=== PATIENT | male | born 1975 | race Caucasian/White ===

== ENCOUNTER 2016-05-28 21:55 | Emergency (ER) | payer MEDICAID ==
[2016-05-28 22:54] LABS: BASOPHILS 0.5 % (0.0-2.0); HEMATOCRIT 44.3 % (42.0-54.0); IMMATURE GRANULOCYTES 0.3 % (0-5); LYMPHOCYTES 37.4 % (15-50); MCH 32.1 pg (26.0-34.0); MCHC 33.9 g/dL (31.0-37.0); MCV 94.7 fL (80.0-100.0); MEAN PLATELET VOLUME 9.6 fL (7.4-10.4); MONOCYTES 10.7 % (2-11); NEUTROPHILS 48.1 % (40-80); PLATELET COUNT 174 10x3/uL (130-400); RBC 4.68 10x6/uL (4.20-6.10); RDW 12.8 % (11.5-14.5); WBC 6.4 10x3/uL (4.8-10.8)
== END 2016-05-29 00:20 | disposition home or self-care (01) ==
LOC: D.ER 21:55
PROVIDERS: Emergency Medicine
DX: S16.1XXA Strain of muscle, fascia and tendon at neck level, initial encounter (principal); V43.52XA Car driver injured in collision with other type car in traffic accident, initial encounter; Y93.89 Activity, other specified; Y92.410 Unspecified street and highway as the place of occurrence of the external cause; S39.012A Strain of muscle, fascia and tendon of lower back, initial encounter; S46.912A Strain of unspecified muscle, fascia and tendon at shoulder and upper arm level, left arm, initial encounter; S46.911A Strain of unspecified muscle, fascia and tendon at shoulder and upper arm level, right arm, initial encounter; F12.90 Cannabis use, unspecified, uncomplicated; F17.200 Nicotine dependence, unspecified, uncomplicated; I10 Essential (primary) hypertension; F41.9 Anxiety disorder, unspecified; F43.10 Post-traumatic stress disorder, unspecified; G47.00 Insomnia, unspecified; F42.9 Obsessive-compulsive disorder, unspecified; F98.8 Other specified behavioral and emotional disorders with onset usually occurring in childhood and adolescence; F32.9 Major depressive disorder, single episode, unspecified

== ENCOUNTER 2017-08-29 16:06 | Emergency (ER) | payer MEDICARE ==
[~2017-08-29] VITALS: Ht 167.6 cm; Wt 86.4 kg
[2017-08-29 16:15] VITALS: Ht 167.6 cm; Wt 86.4 kg
[2017-08-29] MEDS ORDERED: VISTARIL50 MG PO (16:18)
[2017-08-29] MEDS ORDERED: NORCO 7.5/325 T1 TA1 PO (16:18)
[2017-08-29] MEDS ORDERED: NEURONTIN600 MG PO (16:19)
[2017-08-29] MEDS ORDERED: PROTONIX40 MG PO (16:19)
[2017-08-29] MEDS ORDERED: BLOOD PRESSURE MED (16:20)
[2017-08-29 17:05] LABS: BASOPHILS 0.3 % (0-2); EOSINOPHILS 0.8 % (0-7); HEMATOCRIT 43.6 % (42.0-54.0); HEMOGLOBIN 14.9 g/dL (13.5-17.5); IMMATURE GRANULOCYTES 0.4 % (0-5); MCH 31.6 pg (26.0-34.0); MCHC 34.2 g/dL (31.0-37.0); MCV 92.4 fL (80.0-100.0); MEAN PLATELET VOLUME 9.1 fL (7.4-10.4); NEUTROPHILS 60.5 % (40-80); PLATELET COUNT 179 10x3/uL (130-400); RBC 4.72 10x6/uL (4.20-6.10); RDW 12.9 % (11.5-14.5); WBC 7.8 10x3/uL (4.8-10.8)
[2017-08-29 17:15] LABS: APTT 25.2 SECONDS (22.8-39.4); INR 0.96 (0.85-1.17); PROTIME 12.4 SECONDS (11.6-15.0)
[2017-08-29 17:17] LABS: D-DIMER-QUANTITATIVE 0.63 ug/mLFEU (0.20-0.54)
[2017-08-29 17:24] LABS: ALBUMIN 3.7 g/dL (3.4-5.0); ALKALINE PHOSPHATASE 49 U/L (46-116); ALT (SGPT) 33 U/L (10-68); CALC OSMOLALITY 269 mosm/kg (275-300); CALCIUM 8.7 mg/dL (8.5-10.1); CARBON DIOXIDE 26.6 mmol/L (21.0-32.0); CHLORIDE - SERUM 101 mmol/L (98-107); CREATININE - SERUM 1.1 mg/dL (0.6-1.3); GLUCOSE 101 mg/dL (74-106); POTASSIUM - SERUM 4.1 mmol/L (3.5-5.1); PROTEIN - SERUM 7.6 g/dL (6.4-8.2); SODIUM 134 mmol/L (136-145); UREA NITROGEN 18 mg/dL (7-18); eGFR NON AFRICAN AMERICAN 78 mL/min (90-120)
[2017-08-29 17:32] LABS: CKMB 0.5 U/L (0.0-3.6); CREATINE KINASE 91 UL (21-232)
[2017-08-29 17:50] LABS: TROPONIN-I < 0.017 ng/mL (0.000-0.060)
[2017-08-29] MEDS ORDERED: ELIQUIS5 MG PO (19:33)
[2017-08-29 20:21] VITALS: BP 145/66
== END 2017-08-29 20:22 | disposition home or self-care (01) ==
LOC: D.ER 16:06
PROVIDERS: Family Medicine
DX: I82.432 Acute embolism and thrombosis of left popliteal vein (principal); M06.9 Rheumatoid arthritis, unspecified; I10 Essential (primary) hypertension

== ENCOUNTER 2017-10-18 13:47 | Inpatient (IN) | payer MEDICARE ==
[2017-10-18] VITALS (8 sets, daily range): BP systolic 89–117; BP diastolic 36–62
[~2017-10-18] VITALS: Ht 167.6 cm; Wt 86.4 kg
[~2017-10-18 13:47] MED LIST: BLOOD PRESSURE MED; ELIQUIS5 MG PO; NEURONTIN600 MG PO; NORCO 7.5/325 T1 TA1 PO; PROTONIX40 MG PO; VISTARIL50 MG PO
[2017-10-18] MEDS ORDERED: PRADAXA75 MG PO (14:07)
[2017-10-18] MEDS ORDERED: HYDRALAZINE HCL25 MG PO (14:08)
[2017-10-18 14:41] LABS: BASOPHILS 0.3 % (0-2); EOSINOPHILS 0.8 % (0-7); HEMATOCRIT 45.1 % (42.0-54.0); HEMOGLOBIN 15.6 g/dL (13.5-17.5); IMMATURE GRANULOCYTES 0.3 % (0-5); LYMPHOCYTES 24.8 % (15-50); MCH 32.2 pg (26.0-34.0); MCHC 34.6 g/dL (31.0-37.0); MEAN PLATELET VOLUME 9.5 fL (7.4-10.4); MONOCYTES 12.4 % (2-11); NEUTROPHILS 61.4 % (40-80); RBC 4.85 10x6/uL (4.20-6.10); RDW 12.5 % (11.5-14.5); WBC 7.7 10x3/uL (4.8-10.8)
[2017-10-18 14:54] LABS: PLATELET COUNT 239 10x3/uL (130-400)
[2017-10-18 15:07] LABS: ALBUMIN 4.3 g/dL (3.4-5.0); ALKALINE PHOSPHATASE 62 U/L (46-116); ALT (SGPT) 31 U/L (10-68); BILIRUBIN - TOTAL 0.48 mg/dL (0.2-1.3); CALC OSMOLALITY 283 mosm/kg (275-300); CALCIUM 8.7 mg/dL (8.5-10.1); CARBON DIOXIDE 22.8 mmol/L (21.0-32.0); CHLORIDE - SERUM 100 mmol/L (98-107); CREATININE - SERUM 7.6 mg/dL (0.6-1.3); GLUCOSE 109 mg/dL (74-106); POTASSIUM - SERUM 3.9 mmol/L (3.5-5.1); SODIUM 137 mmol/L (136-145); UREA NITROGEN 38 mg/dL (7-18); eGFR NON AFRICAN AMERICAN 8 mL/min (90-120)
[2017-10-18 15:08] LABS: TROPONIN-I < 0.017 ng/mL (0.000-0.060)
[2017-10-18 18:44] LABS: APPEARANCE CLEAR (CLEAR); BILIRUBIN NEGATIVE (NEGATIVE); COLOR YELLOW (YELLOW); GLUCOSE 100 mg/dL (NEGATIVE); KETONE NEGATIVE (NEGATIVE); NITRITE NEGATIVE (NEGATIVE); PROTEIN 1+ mg/dL (NEGATIVE); UROBILINOGEN NORMAL (NORMAL)
[2017-10-18 18:46] LABS: WHITE CELLS - URINE 0-5 /hpf (0-5)
[2017-10-18 18:47] LABS: BACTERIA MODERATE /hpf (NONE SEEN); EPITHELIAL CELLS 0-5 /hpf (0-5); HYALINE CAST 0-5 /lpf (NONE SEEN)
[2017-10-19] MEDS ORDERED: CYCLOBENZAPRINE10 MG PO (00:12)
[2017-10-19] MEDS ORDERED: TRAZODONE HCL150 MG PO (00:13)
[2017-10-19 01:46] VITALS: BP 117/62; BMI 30.7
[2017-10-19 04:39] LABS: BASOPHILS 0.5 % (0-2); EOSINOPHILS 1.6 % (0-7); HEMOGLOBIN 12.5 g/dL (13.5-17.5); IMMATURE GRANULOCYTES 0.2 % (0-5); LYMPHOCYTES 36.6 % (15-50); MCH 31.1 pg (26.0-34.0); MCHC 32.9 g/dL (31.0-37.0); MCV 94.5 fL (80.0-100.0); MEAN PLATELET VOLUME 9.7 fL (7.4-10.4); MONOCYTES 12.3 % (2-11); NEUTROPHILS 48.8 % (40-80); PLATELET COUNT 204 10x3/uL (130-400); RBC 4.02 10x6/uL (4.20-6.10); RDW 12.5 % (11.5-14.5)
[2017-10-19 04:44] LABS: WBC 5.5 10x3/uL (4.8-10.8)
[2017-10-19 04:52] VITALS: BP 100/64
[2017-10-19 04:57] LABS: ANION GAP 10.8 mmol/L (8-16); BILIRUBIN - TOTAL 0.4 mg/dL (0.2-1.3); CALCIUM 7.8 mg/dL (8.5-10.1); CARBON DIOXIDE 23.5 mmol/L (21.0-32.0); POTASSIUM - SERUM 4.3 mmol/L (3.5-5.1); PROTEIN - SERUM 6.2 g/dL (6.4-8.2)
[2017-10-19 04:58] LABS: ALBUMIN 3.1 g/dL (3.4-5.0)
[2017-10-19 08:21] VITALS: BP 87/53
[2017-10-19 12:11] VITALS: Ht 167.6 cm; Wt 86.4 kg
[2017-10-19 12:53] VITALS: BP 129/72
[2017-10-19 16:23] VITALS: BP 113/69
[2017-10-19 20:16] VITALS: BP 120/66
[2017-10-20 01:25] VITALS: BP 130/76
[2017-10-20 04:34] LABS: BASOPHILS 0.2 % (0-2); EOSINOPHILS 1.9 % (0-7); HEMATOCRIT 36.2 % (42.0-54.0); HEMOGLOBIN 12.1 g/dL (13.5-17.5); IMMATURE GRANULOCYTES 0.2 % (0-5); LYMPHOCYTES 44.7 % (15-50); MCH 31.5 pg (26.0-34.0); MCHC 33.4 g/dL (31.0-37.0); MCV 94.3 fL (80.0-100.0); MEAN PLATELET VOLUME 9.3 fL (7.4-10.4); MONOCYTES 9.3 % (2-11); NEUTROPHILS 43.7 % (40-80); PLATELET COUNT 165 10x3/uL (130-400); RBC 3.84 10x6/uL (4.20-6.10); RDW 12.3 % (11.5-14.5); WBC 4.6 10x3/uL (4.8-10.8)
[2017-10-20 04:44] LABS: ANION GAP 9.6 mmol/L (8-16); CALCIUM 7.6 mg/dL (8.5-10.1); CARBON DIOXIDE 24.7 mmol/L (21.0-32.0); POTASSIUM - SERUM 4.3 mmol/L (3.5-5.1)
[2017-10-20 04:46] LABS: CREATININE - SERUM 1.6 mg/dL (0.6-1.3)
[2017-10-20 05:03] VITALS: BP 112/63
[2017-10-20 08:41] VITALS: BP 131/70
[2017-10-20] MEDS ORDERED: NICODERM C1 PATCH .1 TRANSDERM (09:03)
== END 2017-10-20 14:14 | disposition home or self-care (01) | DRG 683 ==
LOC: D.ER 13:47 → D.M2 19:53 → D.EDHOLD 19:53 → D.M2 20:05
PROVIDERS: Family Medicine; Internal Medicine Nephrology
DX: N17.9 Acute kidney failure, unspecified (principal); F17.213 Nicotine dependence, cigarettes, with withdrawal; I10 Essential (primary) hypertension; E86.9 Volume depletion, unspecified; I95.9 Hypotension, unspecified; E78.5 Hyperlipidemia, unspecified; K21.9 Gastro-esophageal reflux disease without esophagitis; F32.9 Major depressive disorder, single episode, unspecified; F41.9 Anxiety disorder, unspecified; Z79.01 Long term (current) use of anticoagulants; Z86.718 Personal history of other venous thrombosis and embolism

== ENCOUNTER 2019-04-28 22:26 | Observation (INO) | payer MEDICARE ==
[~2019-04-28] VITALS: Ht 167.6 cm; Wt 97.7 kg
[~2019-04-28 22:26] MED LIST changes: +CYCLOBENZAPRINE10 MG PO; +HYDRALAZINE HCL25 MG PO; +NICODERM C1 PATCH .1 TRANSDERM; +PRADAXA75 MG PO; +TRAZODONE HCL150 MG PO
[2019-04-28] MEDS ORDERED: LISINOPRIL10 MG PO (23:01)
[2019-04-28] MEDS ORDERED: ZANAFLEX4 MG PO (23:02)
[2019-04-28] MEDS ORDERED: HYDROCODON-ACE1 EA10 PO (23:02)
[2019-04-28] MEDS ORDERED: [UNRECOGNIZED DRUG - REMARK] (23:03)
--- NOTE | 2019-04-28 23:20 | NUR ---
ORDER FOR SL NITRO VERIFIED WITH EDP DOWNEN. EDP DOWNEN STATED TO WITH HOLD NITRO AT THIS TIME. NO FURTHER ORDERS GIVEN.
[2019-04-28 23:29] VITALS: BP 152/96
[2019-04-28 23:42] LABS: HEMOGLOBIN 16.6 g/dL (13.5-17.5); LYMPHOCYTES 22.1 % (15-50); MCH 29.3 pg (26.0-34.0); MCHC 33.2 g/dL (31.0-37.0); MCV 88.3 fL (80.0-100.0); MEAN PLATELET VOLUME 9.1 fL (7.4-10.4); NEUTROPHILS 70.8 % (40-80); PLATELET COUNT 339 10x3/uL (130-400); RBC 5.66 10x6/uL (4.20-6.10); RDW 12.4 % (11.5-14.5)
[2019-04-28 23:44] LABS: CALC OSMOLALITY 277 mosm/kg (275-300); CALCIUM 9.4 mg/dL (8.5-10.1); CARBON DIOXIDE 28.3 mmol/L (21.0-32.0); CHLORIDE - SERUM 100 mmol/L (98-107); CREATININE - SERUM 1.3 mg/dL (0.6-1.3); GLUCOSE 114 mg/dL (74-106); POTASSIUM - SERUM 4.3 mmol/L (3.5-5.1); SODIUM 136 mmol/L (136-145); UREA NITROGEN 26 mg/dL (7-18); eGFR NON AFRICAN AMERICAN 64 mL/min (90-120)
[2019-04-28 23:47] LABS: APTT 30.7 SECONDS (22.8-39.4); INR 1.05 (0.85-1.17); PROTIME 13.6 SECONDS (11.6-15.0)
[2019-04-28 23:48] LABS: D-DIMER-QUANTITATIVE 0.52 ug/mLFEU (0.20-0.54)
[2019-04-29 00:01] LABS: ALBUMIN 4.6 g/dL (3.4-5.0); ALKALINE PHOSPHATASE 62 U/L (30-120); ALT (SGPT) 45 U/L (10-68); AMYLASE - SERUM 1 U/L (25-115); BILIRUBIN - TOTAL 0.58 mg/dL (0.2-1.3); CKMB 1.5 U/L (0.0-3.6); CREATINE KINASE 454 UL (21-232); LIPASE 392 U/L (73-393); PROTEIN - SERUM 8.7 g/dL (6.4-8.2); TROPONIN-I 0.041 ng/mL (0.000-0.060)
[2019-04-29 00:08] LABS: MAGNESIUM - SERUM 2.3 mg/dL (1.8-2.4)
--- NOTE | 2019-04-29 02:01 | NUR ---
PT LYING ON RIGHT LATERAL SIDE, RESTING, BREATHS EVEN, NO ACUTE DISTRESS NOTED, BED IN LOWEST POSITION, CALL LIGHT WITHIN REACH, WILL CONTINUE TO MONITOR.
[2019-04-29] MEDS ORDERED: OMEPRAZOLE20 M1 PO (03:24)
[2019-04-29 03:42] VITALS: BMI 34.7
[2019-04-29 03:53] VITALS: BP 114/70
[2019-04-29 06:36] LABS: BASOPHILS 0.2 % (0-2); EOSINOPHILS 0.8 % (0-7); HEMATOCRIT 46.4 % (42.0-54.0); HEMOGLOBIN 15.8 g/dL (13.5-17.5); IMMATURE GRANULOCYTES 0.4 % (0-5); LYMPHOCYTES 24.5 % (15-50); MCH 30.2 pg (26.0-34.0); MCHC 34.1 g/dL (31.0-37.0); MCV 88.7 fL (80.0-100.0); MEAN PLATELET VOLUME 9.4 fL (7.4-10.4); MONOCYTES 12.2 % (2-11); NEUTROPHILS 61.9 % (40-80); PLATELET COUNT 326 10x3/uL (130-400); RBC 5.23 10x6/uL (4.20-6.10); RDW 13.1 % (11.5-14.5)
--- NOTE | 2019-04-29 07:20 | NUR ---
RECIEVE REPORT. RESTING IN BED WITH EYES CLOSED. NO SIGNS OF DISTRESS. CONTINUE PLAN OF CARE AND SAFETY PRECAUTIONS.
[2019-04-29 07:29] LABS: ALBUMIN 4.3 g/dL (3.4-5.0); ALKALINE PHOSPHATASE 61 U/L (30-120); ALT (SGPT) 46 U/L (10-68); BILIRUBIN - TOTAL 0.55 mg/dL (0.2-1.3); CALC OSMOLALITY 277 mosm/kg (275-300); CALCIUM 8.9 mg/dL (8.5-10.1); CARBON DIOXIDE 25.3 mmol/L (21.0-32.0); CHLORIDE - SERUM 99 mmol/L (98-107); CKMB 1.3 U/L (0.0-3.6); CREATINE KINASE 516 UL (21-232); CREATININE - SERUM 1.1 mg/dL (0.6-1.3); GLUCOSE 112 mg/dL (74-106); POTASSIUM - SERUM 4.3 mmol/L (3.5-5.1); PROTEIN - SERUM 7.8 g/dL (6.4-8.2); SODIUM 136 mmol/L (136-145); TROPONIN-I < 0.017 ng/mL (0.000-0.060); UREA NITROGEN 27 mg/dL (7-18); eGFR NON AFRICAN AMERICAN 78 mL/min (90-120)
[2019-04-29 11:02] VITALS: BP 149/78
[2019-04-29 12:00] VITALS: BP 119/55
[2019-04-29 13:23] VITALS: Ht 167.6 cm; Wt 97.7 kg
[2019-04-29 15:23] LABS: UDS - AMPHET NEGATIVE QUAL (NEGATIVE); UDS - BARB NEGATIVE QUAL (NEGATIVE); UDS - BENZO POSITIVE QUAL (NEGATIVE); UDS - COCAINE NEGATIVE QUAL (NEGATIVE); UDS - OPIATE NEGATIVE QUAL (NEGATIVE); UDS - PCP NEGATIVE QUAL (NEGATIVE); UDS - THC NEGATIVE QUAL (NEGATIVE)
[2019-04-29 15:49] LABS: BILIRUBIN NEGATIVE (NEGATIVE); GLUCOSE NEGATIVE (NEGATIVE); KETONE NEGATIVE (NEGATIVE); NITRITE NEGATIVE (NEGATIVE); UROBILINOGEN NORMAL (NORMAL)
[2019-04-29 17:42] VITALS: BP 123/75
[2019-04-29 22:02] VITALS: BP 139/93
[2019-04-30 00:37] VITALS: BP 122/83
[2019-04-30 06:01] VITALS: BP 108/47
[2019-04-30 06:04] LABS: BASOPHILS 0.1 % (0-2); EOSINOPHILS 0.4 % (0-7); HEMATOCRIT 41.8 % (42.0-54.0); HEMOGLOBIN 13.8 g/dL (13.5-17.5); IMMATURE GRANULOCYTES 0.3 % (0-5); MCH 29.9 pg (26.0-34.0); MCV 90.5 fL (80.0-100.0); MEAN PLATELET VOLUME 9.1 fL (7.4-10.4); MONOCYTES 10.5 % (2-11); NEUTROPHILS 62.7 % (40-80); RBC 4.62 10x6/uL (4.20-6.10); RDW 13.1 % (11.5-14.5); WBC 10.2 10x3/uL (4.8-10.8)
[2019-04-30 06:05] LABS: PLATELET COUNT 253 10x3/uL (130-400)
[2019-04-30 06:27] LABS: CALC OSMOLALITY 277 mosm/kg (275-300); CALCIUM 8.3 mg/dL (8.5-10.1); CARBON DIOXIDE 26.9 mmol/L (21.0-32.0); CHLORIDE - SERUM 106 mmol/L (98-107); GLUCOSE 103 mg/dL (74-106); POTASSIUM - SERUM 4.1 mmol/L (3.5-5.1); SODIUM 138 mmol/L (136-145); eGFR NON AFRICAN AMERICAN 87 mL/min (90-120)
[2019-04-30 06:34] LABS: UREA NITROGEN 18 mg/dL (7-18)
--- NOTE | 2019-04-30 07:10 | NUR ---
REPORT RECEIVED FROM PHYSICIAN PRACTICE MARKET MANAGER AND PATIENT CARE ASSUMED. PATIENT LAYING IN BED ON BACK WITH EYES CLOSED AND BREATHING EVENLY. WILL CONTINUE WITH PLAN OF CARE. SR UPX 2 BED IN LOW POSITION AND CALL LIGHT IN REACH.
--- NOTE | 2019-04-30 11:41 | EC ---
PATIENT:KERRI CORTÉS DATE OF SERVICE: 04/29/19 SEX: M MEDICAL RECORD: [id number] DATE OF : [birth year] LOCATION:D.M2 D.212 AGE OF PATIENT: 44 ADMISSION DATE: 04/29/19 REFERRING PHYSICIAN: INTERPRETING PHYSICIAN: YADI DIMAS MD ECHOCARDIOGRAM REPORT ECHO CHARGES 4 ECHO COMPLETE Date: 04/29/19 CLINICAL DIAGNOSIS: SOB ECHOCARDIOGRAPHIC MEASUREMENTS (adult normal given) AC root (d.<3.7cm) 2.8 cm LV Septum d (<1.2 cm> 0.9 cm Valve Excursion 1.6 cm LV Septum (systole) 1.4 cm Left Atria (s.<4.0cm> 2.5 cm LVPW d(<1.2cm) 1.0 cm RV (d.<2.3cm) 2.7 cm LVPW (sytole) 1.1 cm LV diastole(<5.6CM) 4.6 cm MV E-F(>70mm/sec) cm LV systole 3.8 cm LVOT Diameter 1.5 cm MV exc.(>10mm) cm Est.ejection fraction (50-75%) % DOPPLER: LVIT cm/sec A 57 cm/sec E 58 cm/sec LA cm/sec RVSP 25.5 mmHg LVOT 89 cm/sec AOP1/2T m/s Asc. Ao 118 cm/sec RVOT 70 cm/sec RA cm/sec PA 100 cm/sec AV Gradient Peak 5.6 mmHg AV Mean 2.6 mmHg AV Area 1.5 cm MV Gradient Peak 3.1 mmHg MV Mean 1.2 mmHg MV Area cm COMMENTS: Thermostat Mechanic: [facility] Field Service Technician Poultry: 3 Dr. Santos TAPE# PACS Pericardial Effusion N DATE OF SERVICE: Adequate 2D, color flow imaging, spectral Doppler, and M-Mode No LVH. LV internal dimension is normal. Wall motion is normal. EF is greater than or equal to 55%. Aortic valve is tricuspid. No evidence of stenosis by Doppler interrogation. Left atrium is normal at 3.5 cm. Mitral valve shows no prolapse. Trace MR. Right-sided chambers are grossly normal. Trace TR. TRANSINT:[id number] Voice Confirmation ID: [id number] DOCUMENT ID: [id number] ECHOCARDIOGRAM REPORT [id number] KERRI CORTÉS YADI DIMAS MD at 1141 CC: [id number] DICTATION DATE: 04/29/19 1355 RN PHYSICIAN OFFICE: 04/29/19 1430 ADM IN [place] [id number] [place] [id number]
[2019-04-30 12:01] VITALS: BP 116/59
[2019-04-30] MEDS ORDERED: ELIQUIS5 MG PO (12:29)
--- NOTE | 2019-04-30 14:35 | NUR ---
PATIENT IS STABLE AND VSS. PATIENT DENIES ANY NEEDS OR PAIN. ORDERS RECEIVED DC. WRITTEN AND VERBAL INSRUCTIONS GIVEN TO PATIENT. PATIENT VERBALIZED UNDERSTANDING AND SIGNED PAPERWORK. IV DCD WITHOUT DIFFICULTY WITH ENTIRE CATHETER INTACT. PRESSURE DRSG APPLIED. PATIENT TO FRONT DOOR VIA WC ACCOMPANIED BY HOSPTIAL STAFF TO PRIVATE VEHICLE DRIVEN BY FRIEND.
--- NOTE | 2019-05-01 07:53 | MORECARE ---
CASE MANAGEMENT DISCHARGE SUMMARY PATIENT: KERRI CORTÉS UNIT: [id number] ADM DATE: 04/29/19 AGE: 44 : [birth year] SEX: M ROOM/BED: D.2121 AUTHOR: YANET OLSON PHYSICIAN: REFERRING PHYSICIAN: FELICIA ROA MD DATE OF SERVICE: 05/01/19 Discharge Plan Patient Name: KERRI CORTÉS [facility] [facility] 1975 Planned Disposition: Home Anticipated Discharge Date: 04/30/19 Discharge Date: 04/30/2019 Expected LOS: 1 Initial Reviewer: [email or web address] Initial Review Date: 05/01/2019 Generated: 05/01/19 8:52 am DCP- Discharge Planning Updated by [email or web address]: Krista Oliver on 04/29/19 3:[address] BEAR SERVED, EXPLAINED, AND SIGNED BY PATIENT. THE ORIGINAL WAS PROVIDED TO THE PATIENT AND COPY PLACED ON CHART. Coverage Notice Reviewer: [email or web address] - Krista Oliver Notice Issued Date-Time: 04/29/2019 13:00 Notice Type: Medicare Outpatient Observation Notice Notice Delivered To: Patient Relationship to Patient: Shipfitter Apprentice Name: Delivery Method: HAND - Hand Delivered Stacie Days: Prior Verbal Notification: Recipient Understood Notice: Yes Recipient Signature: Yes Med Rec Note Co-signed by Attending: Coverage Notice Comment: BEAR SERVED, EXPLAINED, AND SIGNED BY PATIENT. THE ORIGINAL WAS PROVIDED TO THE PATIENT AND COPY PLACED ON CHART. Patient Name: KERRI CORTÉS Page [id number] at 0753 All edits/amendments must be made on the electronic document DICTATION DATE: 05/01/19 075 LUBRICATOR GRANULATOR: REMA 05/01/19 0752 RPT#: [id number] DC DATE:04/30/19 STATUS: DIS IN [facility] [address] [place] [address] END OF REPORT
== END 2019-04-30 14:35 | disposition home or self-care (01) ==
LOC: D.ER 22:26 → D.M2 04-29 01:45 → OBSVTIME 04-29 01:45 → D.M2 04-29 01:45 → D.SDCHOLD 04-29 11:40 → D.M2 04-29 14:54 → D.SDCHOLD 04-29 14:54 → D.M2 04-30 14:35
PROVIDERS: Family Medicine; ADMIT Internal Medicine Nephrology; ATTEND Internal Medicine Nephrology
DX: I20.9 Angina pectoris, unspecified (principal); N17.9 Acute kidney failure, unspecified; I10 Essential (primary) hypertension; F41.8 Other specified anxiety disorders; F17.203 Nicotine dependence unspecified, with withdrawal; G89.29 Other chronic pain; I82.509 Chronic embolism and thrombosis of unspecified deep veins of unspecified lower extremity; Z79.01 Long term (current) use of anticoagulants

== ENCOUNTER → 2019-05-06 17:04 | Outpatient (CLI) | payer MEDICARE ==
[2019-04-29 13:23] VITALS: BMI 34.7
[~2019-05-06 17:04] MED LIST changes: +HYDROCODON-ACE1 EA10 PO; +LISINOPRIL10 MG PO; +OMEPRAZOLE20 M1 PO; +ZANAFLEX4 MG PO; +[UNRECOGNIZED DRUG - REMARK]
[2019-05-06 17:49] LABS: BASOPHILS 0.1 % (0-2); EOSINOPHILS 0.6 % (0-7); HEMATOCRIT 44.2 % (42.0-54.0); HEMOGLOBIN 14.5 g/dL (13.5-17.5); IMMATURE GRANULOCYTES 0.3 % (0-5); LYMPHOCYTES 20.1 % (15-50); MCH 30.2 pg (26.0-34.0); MCHC 32.8 g/dL (31.0-37.0); MCV 92.1 fL (80.0-100.0); MEAN PLATELET VOLUME 9.1 fL (7.4-10.4); MONOCYTES 10.4 % (2-11); NEUTROPHILS 68.5 % (40-80); PLATELET COUNT 271 10x3/uL (130-400); RDW 12.7 % (11.5-14.5); WBC 10.8 10x3/uL (4.8-10.8)
[2019-05-06 17:55] LABS: ALBUMIN 3.7 g/dL (3.4-5.0); ANION GAP 9.5 mmol/L (8-16); BILIRUBIN - TOTAL 0.29 mg/dL (0.2-1.3); CALCIUM 8.6 mg/dL (8.5-10.1); CARBON DIOXIDE 28.7 mmol/L (21.0-32.0); CREATININE - SERUM 1.5 mg/dL (0.6-1.3); POTASSIUM - SERUM 4.2 mmol/L (3.5-5.1); PROTEIN - SERUM 7.4 g/dL (6.4-8.2)
== END | disposition home or self-care (01) ==
LOC: D.RAD 17:04
PROVIDERS: ATTEND Nurse Practitioner
DX: R10.9 Unspecified abdominal pain (principal)

== ENCOUNTER → 2019-10-07 16:45 | Outpatient (CLI) | payer MEDICARE ==
[2019-04-29 13:23] VITALS: BMI 34.7
== END | disposition home or self-care (01) ==
LOC: D.US 16:45
PROVIDERS: ATTEND Nurse Practitioner
DX: M79.605 Pain in left leg (principal)

== ENCOUNTER → 2019-11-17 10:49 | Outpatient (CLI) | payer MEDICARE ==
[2019-04-29 13:23] VITALS: BMI 34.7
== END | disposition home or self-care (01) ==
LOC: D.US 10:49 → D.NM 11:30
PROVIDERS: ATTEND Internal Medicine Gastroenterology
DX: R14.0 Abdominal distension (gaseous) (principal); R10.84 Generalized abdominal pain; R52 Pain, unspecified

== ENCOUNTER → 2020-07-28 16:55 | Outpatient (CLI) | payer MEDICARE ==
[2019-04-29 13:23] VITALS: BMI 34.7
== END | disposition home or self-care (01) ==
LOC: D.LABREF 16:55
PROVIDERS: ATTEND Orthopaedic Surgery
DX: M16.12 Unilateral primary osteoarthritis, left hip (principal)